=== PATIENT | male | born 1960 | race African-American/Black ===

== ENCOUNTER 2019-06-02 06:17 | Inpatient (IN) | payer OTHER ==
[2019-06-01 12:31] VITALS: BMI 28.8
[2019-06-02] MEDS ORDERED: ROCURONIUM BROMIDE 50 MG/5 ML SYRINGE ONE ×2 (07:02→09:40)
[2019-06-02] MEDS ORDERED: PROPOFOL 20 ML ONE ×2 (07:02→08:26)
[2019-06-02] MEDS ORDERED: SUCCINYLCHOLINE CHLORIDE 200 MG/10 ML SYRINGE ONE (07:02)
[2019-06-02] MEDS ORDERED: fentaNYL CITRATE 250 MCG/5 ML VIAL ONE (07:02)
[2019-06-02] MEDS ORDERED: MIDAZOLAM HCL 2 MG/2 ML SINGLE DOSE VIAL ONE (07:02)
[2019-06-02] MEDS ORDERED: DEXAMETHASONE SOD PHOSPHATE 4 MG/1 ML VIAL ONE (07:03)
[2019-06-02] MEDS ORDERED: LIDOCAINE HCL/PF 2% SDV 5ML VIAL ONE (07:03)
[2019-06-02] MEDS ORDERED: HEPARIN NA (PORCINE) 5,000 UNITS/ML 1ML VIAL SQ ONE ×2 (07:03→13:11)
[2019-06-02] MEDS ORDERED: BUPIVACAINE HCL/PF 0.25% (2.5MG/ML) 10 ML VIAL ONE ×2 (07:36→12:12)
[2019-06-02] MEDS ORDERED: ceFAZolin SODIUM 1 GM VIAL ONE (08:54)
[2019-06-02] MEDS ORDERED: ceFAZolin SODIUM 1 GM VIAL IVPB ONE (08:55)
[2019-06-02] MEDS ORDERED: ONDANSETRON 4 MG/2 ML VIAL IVPUSH PRN (09:49)
[2019-06-02] MEDS ORDERED: LACTATED RINGERS SOLUTION 1,000 ML IV SCH (10:00)
[2019-06-02] MEDS ORDERED: NEOSTIGMINE METHYLSULFATE 0.5 MG/ML - 10 ML MDV ONE (12:09)
[2019-06-02] MEDS ORDERED: GLYCOPYRROLATE 0.2 MG/1 ML VIAL ONE (12:09)
[2019-06-02] MEDS ORDERED: BUPIVACAINE HCL/PF 0.25% (2.5MG/ML) 10 ML VIAL IJ ONE ×2 (12:14)
[2019-06-02] MEDS ORDERED: KETOROLAC TROMETHAMINE 30 MG/1 ML VIAL ONE (12:25)
[2019-06-02] MEDS ORDERED: ACETAMINOPHEN 1000 MG/100 ML VIAL (NON FORMULARY) IVPB ONE (13:00)
[2019-06-02] MEDS ORDERED: diphenhydrAMINE HCL 50 MG CAPSULE PO PRN (13:11)
[2019-06-02] MEDS ORDERED: OXYBUTYNIN CHLORIDE 5 MG TABLET PO PRN (13:11)
[2019-06-02] MEDS ORDERED: ONDANSETRON 4 MG/2 ML VIAL IVPB PRN (13:11)
[2019-06-02] MEDS ORDERED: SODIUM CHLORIDE 1,000 ML IV SCH (13:15)
[2019-06-02] MEDS ORDERED: ACETAMINOPHEN INJECTION 100 ML IVPB ONE (13:19)
--- NOTE | 2019-06-02 14:31 | OP ---
Operative Note - Note: Operative Date: 06/02/19 Pre-Operative Diagnosis: prostate cancer Operation: robotic assisted total prosatectomy with b/l pelvic lymphnode dissection Post-Operative Diagnosis: Same as Pre-op Surgeon: Hank Clayton Maintainer Operator: Meri Schmitz Anesthesiologist/CREDIT CONTROL CLERK: Vickie Villatoro Anesthesia: General Specimens Removed: prostate, seminal vessicles, periprostatic fat, pelvic lymphnodes. Estimated Blood Loss (mls): 100 Fluid Volume Replaced (mls): 1,800 Operative Report Dictated: Yes
--- NOTE | 2019-06-02 14:39 | SURG ---
Surgery Integrative Medicine Physician Note Integrative Medicine Physician: Meri Schmitz PA-C Date of Service: 06/02/19 Diagnosis: prostate cancer Procedure: robotic assisted total prosatectomy with b/l pelvic lymphnode dissection I was present for the entirety of the operative procedure. For further detail, please refer to operative report. Visit type - Case Type Case Type: Scheduled - Emergency Emergency Visit: No - New patient This patient is new to me today: Yes Date on this admission: 06/02/19
[2019-06-02] MEDS ORDERED: HYDROmorphone HCl 2 MG/ML VIAL ONE (16:14)
[2019-06-02] MEDS ORDERED: HYDROmorphone HCL CARPU-JECT 2 MG/1 ML DISP.SYRIN IVPUSH ONE ×2 (16:20→17:05)
[2019-06-02] MEDS ORDERED: HYDROmorphone HCl 2 MG/ML VIAL IVPB PRN (17:22)
[2019-06-02] MEDS: ACETAMINOPHEN 1000 MG/100 ML VIAL (NON FORMULARY) IVPB SCH (19:12)
[2019-06-02] MEDS: oxyCODONE HCL 5 MG TABLET PO PRN (21:34)
[2019-06-02] MEDS: DOCUSATE SODIUM 100 MG CAPSULE (FP) PO SCH (22:00)
[2019-06-02] MEDS ORDERED: ZOLPIDEM TARTRATE 5 MG TABLET PO PRN (22:00)
[2019-06-02] MEDS: LATANOPROST 0.005% OPHTH SOLN 2.5ML BOTTLE OU SCH (22:45)
[2019-06-03] MEDS: KETOROLAC TROMETHAMINE 10 MG TABLET PO SCH ×5 (00:23→18:11)
[2019-06-03] MEDS: ACETAMINOPHEN 1000 MG/100 ML VIAL (NON FORMULARY) IVPB SCH ×2 (02:45→08:46)
[2019-06-03] MEDS: oxyCODONE HCL 5 MG TABLET PO PRN (04:49)
--- NOTE | 2019-06-03 07:08 | OP ---
DATE OF OPERATION: 06/02/2019 PREOPERATIVE DIAGNOSIS: Prostate cancer. POSTOPERATIVE DIAGNOSIS: Prostate cancer. PROCEDURE: Robotic-assisted laparoscopic radical prostatectomy and bilateral pelvic lymph node dissection. The patient was brought to the operating room. A timeout was called. All pressure points were padded. He was prepped and draped in the usual fashion for robotic radical prostatectomy. A Elliott catheter was placed in the bladder. Initial pneumoperitoneum was obtained using a Veress needle. Subsequently an 8-mm port was placed and the robotic camera was used and the abdomen was explored. No bowel injuries were identified. Three additional 8-mm ports and one 12-mm kindergarten teacher assistant port were placed under vision. The robot was brought to the patient's bedside and docked. We identified a few intraabdominal adhesions, which were taken down sharply. The bladder was dropped from the anterior attachment to the abdominal wall. The prostate was then defatted and the fat was sent for pathological examination. The endopelvic fascia was opened on both sides. Superficial veins were cauterized and a DVC stitch of 0 PDS was placed. The anterior bladder neck was then incised and the dissection proceeded towards the posterior bladder neck up to the vas deferens and seminal vesicles. The rectoprostatic fascia was incised and the dissection was carried distally towards the apex. At that point bilateral nerve-sparing procedure was performed and dissection was pursued laterally up to the apex. On the right, an intrafascial nerve-sparing procedure was performed. On the left, an intrafascial nerve-sparing procedure was performed. The prostatic vascular pedicles were then controlled bilaterally using Weck clips. The DVC was then divided and the urethra was transected using cold scissors. Following complete urethral transection, the prostate was then mobilized and freed from its posterior attachment and placed in the right upper quadrant. The prostatic basin was then irrigated with saline. The bedside kindergarten teacher assistant placed a finger in the rectum and no rectal injury was observed with no visible blood noted on the surgical consultant's glove. Bilateral pelvic lymph node dissections were performed in the usual fashion between the external iliac and the obturator nerves bilaterally. The prostate and lymph nodes were then placed together in an EndoCatch bag. At this point hemostasis was assessed and maintained in the prostatic fossa. The urethrovesical anastomosis was then performed using 2-0 Monocryl sutures on a UR-6 needle in a running anastomotic technique. The anastomosis was tested with 60 mL of saline and was watertight. A Bartolo-Haro drain was not placed. The 12-mm kindergarten teacher assistant port was closed using the Quique-Narendra device with 0 Vicryl. The specimen was extracted after enlarging the umbilical incision. The fascia was then closed using running 0 Vicryl. The skin was closed using 4-0 Monocryl and covered with Dermabond. The patient was extubated in the operating room and taken to the recovery room in good condition. Estimated blood loss: 100 mL. There were no accidental lacerations or complications from the procedure. MD APOLINAR GOODRICH/[id number]
[2019-06-03 07:20] LABS: HEMATOCRIT 37.6 % (35.4-49); HEMOGLOBIN 12.9 GM/dL (11.7-16.9); MCH 32.4 pg (25.7-33.7); MCHC 34.3 g/dl (32.0-35.9); MEAN CELL VOLUME 94.5 fl (80-96); MEAN PLT VOLUME 8.8 fl (7.5-11.1); PLATELET COUNT 167 K/MM3 (134-434); RBC 3.97 M/mm3 (4.00-5.60); RDW 14.1 % (11.9-15.9); WHITE BLOOD COUNT 10.4 K/mm3 (4.0-10.0)
[2019-06-03 07:34] LABS: BLOOD UREA NITROGEN 20.7 mg/dL (7-18); CALCIUM 8.6 mg/dL (8.5-10.1); CREATININE 1.1 mg/dL (0.55-1.3)
--- NOTE | 2019-06-03 08:51 | PN ---
Progress Note (short form) - Note Progress Note: Surgery POD #1 robotic assisted prostatectomy patient seen and examined at bedside c/o diffuse abdominal pain and groin pain. He has been tolerated clears but has not been OOB or passed gas yet. He denies any CP, SOB, N/V fever or chills.
--- NOTE | 2019-06-03 09:07 | DS ---
Physical Exam: SUBJECTIVE: POD #1 robotic assisted prostatectomy patient seen and examined at bedside c/o diffuse abdominal pain and groin pain. He has been tolerated clears but has not been OOB or passed gas yet. He denies any CP, SOB, N/V fever or chills. his jenkins put out @ 650cc overnight. OBJECTIVE: Vital Signs Temperature 98.6 F 06/03/19 05:43 Pulse Rate 85 06/03/19 05:43 Respiratory Rate 18 06/03/19 05:43 Blood Pressure 141/65 06/03/19 05:43 O2 Sat by Pulse Oximetry (%) 98 06/02/19 21:00 PHYSICAL EXAM GENERAL: The patient is awake, alert, and fully oriented, in no acute distress. HEAD: Normal with no signs of trauma. EYES: sclera anicteric, conjunctiva clear. LUNGS: no auditory wheezes, no accessory muscle use. ABDOMEN: Soft, mildly distended, with diffuse TTP throughout, Incisions c/d/i with surrounding tissue intact and no tracking erythema or d/c. Jenkins secure in place with pink tinged urine, Scrotum with no edema EXTREMITIES: 2+ pulses, warm, well-perfused, no edema. NEUROLOGICAL: Cranial nerves II through XII grossly intact. Normal speech, gait not observed. PSYCH: Normal mood, normal affect. SKIN: Warm, dry, normal turgor, no rashes or lesions noted. LABS CBC,CMP WBC 10.4 K/mm3 (4.0-10.0) H 06/03/19 06:35 RBC 3.97 M/mm3 (4.00-5.60) L 06/03/19 06:35 Hgb 12.9 GM/dL (11.7-16.9) 06/03/19 06:35 Hct 37.6 % (35.4-49) 06/03/19 06:35 MCV 94.5 fl (80-96) 06/03/19 06:35 MCH 32.4 pg (25.7-33.7) 06/03/19 06:35 MCHC 34.3 g/dl (32.0-35.9) 06/03/19 06:35 RDW 14.1 % (11.9-15.9) 06/03/19 06:35 Plt Count 167 K/MM3 (134-434) 06/03/19 06:35 MPV 8.8 fl (7.5-11.1) 06/03/19 06:35 Sodium 137 mmol/L (136-145) 06/03/19 06:35 Potassium 4.0 mmol/L (3.5-5.1) 06/03/19 06:35 Chloride 100 mmol/L (98-107) 06/03/19 06:35 Carbon Dioxide 30 mmol/L (21-32) 06/03/19 06:35 Anion Gap 6 MMOL/L (8-16) L 06/03/19 06:35 BUN 20.7 mg/dL (7-18) H 06/03/19 06:35 Creatinine 1.1 mg/dL (0.55-1.3) 06/03/19 06:35 Est GFR (CKD-EPI)AfAm 84.71 06/03/19 06:35 Est GFR (CKD-EPI)NonAf 73.09 06/03/19 06:35 Random Glucose 116 mg/dL (74-106) H 06/03/19 06:35 Calcium 8.6 mg/dL (8.5-10.1) 06/03/19 06:35 HOSPITAL COURSE: Date of Admission:06/02/19 The patient was admitted to the Med-Surg Unit after an elective robotic assisted prostatectomy. Now, POD #1 prostatectomy with pelvic lymph node dissection Non-narcotic pain management control was achieved with an oral and IV approach. POD #1, the patient ambulated in the hallway without assistance and no services were recommended upon discharge. Martine-operative IV ABX were administered. DVT prophylaxis was achieved with SCDs and early ambulation. Non-Narcotic scripts were written for d/c home. The discharge instructions and an oral pain management plan were reviewed with the patient. All questions answered. Above plan discussed with and agreed. Date of Discharge: 06/03/19 Minutes to complete discharge: 25 Visit type - Case Type Case Type: Scheduled - Emergency Emergency Visit: No - New patient This patient is new to me today: Yes Date on this admission: 06/03/19
--- NOTE | 2019-06-03 09:10 | PN ---
HC Provider Note Provider Note: Anesthesia Post Op Pt in bed awake alert NAD Pt reports diffuse abd pain/discomfort Pt reports tolerating po's well no n/v Denies puritis, Ambulating todau, jenkins remains in situ VSS no apparent anesthesia complications Holger Torres.
[2019-06-03] MEDS ORDERED: PATIENT'S OWN MEDICATION (NON-FORMULARY) (Olmesartan/Amlodipin/Hcthiazid [Tribenzor 40-10- PO SCH (10:00)
[2019-06-03] MEDS: DOCUSATE SODIUM 100 MG CAPSULE (FP) PO SCH ×2 (11:00→22:14)
[2019-06-03] MEDS: ESCITALOPRAM OXALATE 10 MG TABLET (FP) PO SCH (11:00)
[2019-06-03] MEDS: hydrALAZINE HCL 50 MG TABLET (FP) PO SCH (11:16)
[2019-06-03] MEDS: HYDROCHLOROTHIAZIDE 25 MG TABLET (FP) PO SCH (11:18)
[2019-06-03] MEDS: VALSARTAN 160 MG TABLET (UD) PO SCH (11:18)
[2019-06-03] MEDS: FUROSEMIDE 20 MG TABLET (FP) PO SCH (11:18)
[2019-06-03] MEDS: amLODIPine BESYLATE 10 MG TABLET (FP) PO SCH (11:19)
[2019-06-03] MEDS: ACETAMINOPHEN 500 MG TABLET (FP) PO SCH ×2 (14:14→20:47)
--- NOTE | 2019-06-03 15:57 | PN ---
Progress Note (short form) - Note Progress Note: Patient seen and examined at bedside. Patient has refused to ambulate 2/2 pain at 2 left port sites, states he feels a tearing pain at the sites when he moves. He is tolerating a regular diet and has passed gas. Nursing reports no issues throughout the day. He has been resting comfortably and sleeping off and on throughout the afternoon. Vital Signs Temp 98.4 F 06/03/19 09:00 Pulse 86 06/03/19 09:00 Resp 18 06/03/19 09:00 BP 107/56 L 06/03/19 09:00 Pulse Ox 95 06/03/19 09:00 Intake & Output 06/02/19 06/03/19 06/03/19 23:59 11:59 23:59 Intake Total 1000 1420 230 Output Total 1400 350 400 Balance -400 1070 -170 Intake: IV 500 900 Normal Saline - 1,000 ml 900 @ 75 mls/hr IV ASDIR PRESLEY Rx#:[id number] IVPB 200 Oral 500 320 230 Output: Urine 1300 350 400 Elliott 300 350 400 Void 200 Estimated Blood Loss 100 Other: Voiding Method Indwelling Catheter Indwelling Catheter Bowel Movement No No PE: A&0x3, NAD unlbored resp on RA ABD: exam unchaged from this mornings exam. urine appears less pink and more yellow this afternoon. Elliott catheter secure with no evidence of leakage at catheter. Problem List - Problems (1) S/P prostatectomy Assessment/Plan: POD #1 patient has not ambulated. I again stressed the importance of ambulation and getting OOB. He has agreed to get up with PT before dinner in a few hours. Plan for d/c home tomorrow. Continue current Plan of as outlined in my AM note. Evaluation and plan discussed with Dr Clayton Code(s): Z90.79 - ACQUIRED ABSENCE OF OTHER GENITAL ORGAN(S)
[2019-06-03] MEDS ORDERED: PT OWN MED DRAWER 7, Y5N ONE ×2 (18:32→21:50)
[2019-06-03] MEDS ORDERED: ATORVASTATIN CA 10 MG TABLET (FP) PO SCH (22:00)
[2019-06-03] MEDS: LATANOPROST 0.005% OPHTH SOLN 2.5ML BOTTLE OU SCH (22:14)
[2019-06-04] MEDS: KETOROLAC TROMETHAMINE 10 MG TABLET PO SCH ×3 (01:09→13:20)
[2019-06-04] MEDS: ACETAMINOPHEN 500 MG TABLET (FP) PO SCH ×3 (01:11→13:49)
--- NOTE | 2019-06-04 08:15 | PN ---
Progress Note (short form) - Note Progress Note: POD #2 robotic assisted prostatectomy, patient seen and examined at bedside. Patient did get up to chair yesterday 2/2 pain over the left port sites but he has ambulated for the first time this morning. He states the pain is improving and more focal over the superior left port site with movement. He continues to tolerate a regular diet and is passing gas. Nursing reports no issues overnight. He has been resting comfortably and denies any CP, SOB, N/V fever or chills. Vital Signs Temp 98.2 F 06/04/19 05:00 Pulse 72 06/04/19 05:00 Resp 18 06/04/19 05:00 BP 152/99 06/04/19 05:00 Pulse Ox 97 06/03/19 21:00 Intake & Output 06/03/19 06/03/19 06/04/19 11:59 23:59 11:59 Intake Total 1420 1550 1250 Output Total 979 185 8802 Balance 1070 650 249 Intake: IV 900 600 900 Normal Saline - 1,000 ml 900 600 900 @ 75 mls/hr IV ASDIR PRESLEY Rx#:[id number] IVPB 200 100 Oral 320 850 350 Output: Urine 195 [id number] [id number] Elliott [phone] Other: Voiding Method Indwelling Catheter Indwelling Catheter Bowel Movement No CBC, BMP CBC, BMP 06/04/19 08:00 06/04/19 08:00 PE: A&0x3, NAD unlbored resp on RA ABD: soft, ND, with focal TTP around superior port site on left side. Surrounding tissue intact with no erythema, or d/c. Elliott securely in place, urine clear with appropriate output and no evidence of leakage at catheter. B/L LE compartments soft, supple and non tender with +2 DP pulses Problem List - Problems (1) S/P prostatectomy Assessment/Plan: POD #2 patient doing well with pain controlled and improving. Plan for d/c home today. -OOB with assist -regular diet -encourage daily IS - d/c home today Evaluation and plan discussed with Dr Clayton Code(s): Z90.79 - ACQUIRED ABSENCE OF OTHER GENITAL ORGAN(S)
[2019-06-04 08:40] LABS: BASO % 0.3 % (0-2.0); EOS % 1.2 % (0-4.5); HEMATOCRIT 38.6 % (35.4-49); HEMOGLOBIN 13.4 GM/dL (11.7-16.9); LYMPH % 24.4 % (8-40); MCH 32.8 pg (25.7-33.7); MCHC 34.6 g/dl (32.0-35.9); MEAN CELL VOLUME 94.7 fl (80-96); MEAN PLT VOLUME 8.9 fl (7.5-11.1); MONO % 6.9 % (3.8-10.2); NEUT % 67.2 % (42.8-82.8); PLATELET COUNT 167 K/MM3 (134-434); RBC 4.08 M/mm3 (4.00-5.60); RDW 14.3 % (11.9-15.9); WHITE BLOOD COUNT 8.2 K/mm3 (4.0-10.0)
[2019-06-04 09:01] LABS: ALBUMIN 3.3 g/dl (3.4-5.0); BILIRUBIN,TOTAL 1.1 mg/dL (0.2-1); BLOOD UREA NITROGEN 15.8 mg/dL (7-18); CALCIUM 8.8 mg/dL (8.5-10.1); POTASSIUM 3.5 mmol/L (3.5-5.1); TOT PROT 6.4 g/dl (6.4-8.2)
[2019-06-04] MEDS: FUROSEMIDE 20 MG TABLET (FP) PO SCH (09:52)
[2019-06-04] MEDS: DOCUSATE SODIUM 100 MG CAPSULE (FP) PO SCH (09:52)
[2019-06-04] MEDS: VALSARTAN 160 MG TABLET (UD) PO SCH (09:52)
[2019-06-04] MEDS: ESCITALOPRAM OXALATE 10 MG TABLET (FP) PO SCH (09:52)
[2019-06-04] MEDS: amLODIPine BESYLATE 10 MG TABLET (FP) PO SCH (09:52)
[2019-06-04] MEDS: HYDROCHLOROTHIAZIDE 25 MG TABLET (FP) PO SCH (09:52)
[2019-06-04] MEDS: hydrALAZINE HCL 50 MG TABLET (FP) PO SCH (09:52)
[2019-06-04 15:55] VITALS: BP 138/78; PULSE 77; TEMP 98.7
--- NOTE | 2019-06-05 17:29 | PATH ---
Surgical Pathology Report Patient Name: PEYTON HANKINS [facility]. Rec. #: [id number] /Age/Gender: 1960 (Age: 58) / M Account: [id number] Location: [address] [place] [address]/[facility] Taken: 06/02/2019 Received: 06/02/2019 Reported: 06/11/2019 Physicians: Hank Clayton MD Specimen(s) Received A: URETHRAL MARGIN B: PERIPROSTATIC FAT C: PELVIC LYMPH NODE A D: PELVIC LYMPH NODE B E: PROSTATE AND SEMINAL VESICLE Clinical History Prostate cancer Intraoperative Consult Diagnosis URETHRAL MARGIN FOR FROZEN: BENIGN FIBROCONNECTIVE TISSUE. NEGATIVE FOR MALIGNANCY. Dr. Canela Final Diagnosis A. URETHRAL MARGIN FOR FROZEN (FS): BENIGN FIBROCONNECTIVE TISSUE, NEGATIVE FOR CARCINOMA. B. PERIPROSTATIC FAT, EXCISION: BENIGN ADIPOSE TISSUE, NEGATIVE FOR CARCINOMA. C. PELVIC LYMPH NODE A, EXCISION: ONE LYMPH NODE, NEGATIVE FOR METASTATIC CARCINOMA (0/1). D. PELVIC LYMPH NODE B, EXCISION: ONE LYMPH NODE, NEGATIVE FOR METASTATIC CARCINOMA (0/1). E. PROSTATE AND SEMINAL VESICLE, RADICAL PROSTATECTOMY: PROSTATIC ADENOCARCINOMA, ACINAR TYPE, JOSE SCORE 3+4 =7, GRADE GROUP 2. TUMOR VOLUME: APPROXIMATELY 10% OF PROSTATE. TUMOR PREDOMINANTLY PRESENT AT THE LEFT SIDE, FOCALLY INVOLVING RIGHT SIDE OF THE PROSTATE. SEMINAL VESICLE INVASION NOT IDENTIFIED. LYMPHOVASCULAR INVASION NOT IDENTIFIED. PERINEURAL INVASION IDENTIFIED. NO EXTRAPROSTATIC EXTENSION PRESENT. SURGICAL MARGINS ARE NEGATIVE FOR CARCINOMA. PATHOLOGIC STAGE (pTNM): pT2 pN0 SEE SURGICAL PATHOLOGY CANCER CASE SUMMARY BELOW. Comment: Immunohistochemistry stain p63 (block E18 and E26) performed and interpreted at [facility] shows loss of basal layer in the areas of carcinoma. Positive and negative controls (internal if applicable) show appropriate results. Comments SURGICAL PATHOLOGY CANCER CASE SUMMARY Procedure _x_ Radical prostatectomy +Prostate Size + Weight: (grams): 63 g + Size (centimeters): 5.5 x 5.3 x 3.1cm Histologic Type _x_ Acinar adenocarcinoma Histologic Grade Grade Group and Jose Score _x_ Grade group 2 ([place]kill Score 3+4=7) Percentage of Pattern 4 in C[place]kill Score 7 (3+4, 4+3) Cancer: 25 % + Intraductal Carcinoma (IDC) + _x_ Not identified + Tumor Quantitation + Estimated percentage of prostate involved by tumor: 10% + Tumor size (dominant nodule, if present): + Greatest dimension (millimeters): 20 mm + Location of dominant nodule: Left Extraprostatic Extension (EPE) _x_ Not identified Urinary Bladder Neck Invasion _x_ Not identified Seminal Vesicle Invasion _x_ Not identified + Lymphovascular Invasion + _x_ Not identified + Perineural Invasion + _x_ Present Margins _x_ Uninvolved by invasive carcinoma Treatment Effect _x_ No known presurgical therapy Regional Lymph Nodes Number of Lymph Nodes Involved: 0 Number of Lymph Nodes Examined: 2 Pathologic Stage Classification (pTNM, AJCC 8th Edition) Primary Tumor (pT) _x_ pT2: Organ confined Regional Lymph Nodes (pN) _x_ pN0: No positive regional nodes + Additional Pathologic Findings + _x_ High-grade prostatic intraepithelial neoplasia (PIN) + _x_ Nodular prostatic hyperplasia Electronically Signed Savannah Canela M.D. Gross Description A. Received fresh, labeled "urethral margin" is a richmond, irregular portion of soft tissue measuring 0.5 x 0.3 x 0.2 cm. The specimen is submitted for frozen. The remaining of the tissue submitted in one cassette for histology. B. Received in formalin, labeled "periprostatic fat" are 2 portions of adipose tissue measuring 3.0 x 2.0 x 0.2 cm and 2.5 x 2.5 x 0.2 cm, respectively. The specimen is entirely submitted 2 cassettes. C. Received in formalin, labeled "pelvic lymph node A" is a nodular lesion probably a lymph node measuring 5 x 1 x 1 cm. The nodule is serially sectioned and entirely submitted in 3 cassettes. The rest fatty tissue is entirely submitted in one cassette. 1-3: Nodular lesion; 4: Fatty tissue. D. Received in formalin, labeled "pelvic lymph node B" is a nodular lesion with attached fat measuring 9 x 2.5 x 2.5 cm. A nodular lesion probably represent a lymph node measures 7 x 1 x 1 cm is . The nodular lesion is serially sectioned and entirely submitted 4 cassettes. E. Received in formalin labeled with "prostate and seminal vesicles", is a 63g radical prostatectomy specimen with attached seminal vesicles and vas deferentia. The prostate measures 5.5 cm from left to right, 5.3 cm from superior to inferior, and 3.1 cm from anterior to posterior. The left vas deferens measures 4 cm in length and 0.4 cm in diameter. Right vas deferens measures 4.3 cm in length and 0.4 cm in diameter. The left seminal vesicle measures 4.0 x 2.3 x 0.4 cm, and the right seminal vesicle measures 3.5 x 2.5 x 0.4 cm. The outer capsule is richmond-alford and predominantly smooth. The anterior prostate is inked blue, the posterior prostate is inked black. Serial sections reveal a nodular lesion with yellow discoloration located at the left side of the prostate, this nodular lesion measures 2cm in greatest dimension. Operators Teacher sections are submitted in 26 cassettes. 1: Left vas deferens margin; 2: right vas deferens margin; 3: left seminal vesicle base; 4: right seminal vesicle base; 5-6: left apical margin (inked blue), perpendicular; 7: right apical margin (inked blue), perpendicular; 8: left bladder neck margin (inked black), perpendicular; 9-10: right bladder neck margin (inked black), perpendicular; 11-19: left prostate sequentially submitted from base to apex; 20-27: right prostate sequentially submitted from base to apex. PAM/06/03/2019 purnima06/03/2019
== END 2019-06-04 17:24 | disposition home or self-care (01) | DRG 484 ==
LOC: JSAMEDAYSX 06:17 → J6S 18:05
PROVIDERS: ADMIT Urology; ATTEND Urology
PROC: 8E0W4CZ Robotic Assisted Procedure of Trunk Region, Percutaneous Endoscopic Approach (ICD-10-PCS; 2019-06-02)
PROC: 07BC4ZX Excision of Pelvis Lymphatic, Percutaneous Endoscopic Approach, Diagnostic (ICD-10-PCS; 2019-06-02)
PROC: 0VT04ZZ Resection of Prostate, Percutaneous Endoscopic Approach (ICD-10-PCS; principal; 2019-06-02 08:00)
DX: C61 Malignant neoplasm of prostate (principal)
CPT/HCPCS: 36415; 80048; 80053; 85025; 85027; 86850; 86900; 86901; 88305-TC; 88309-TC; 88331-TC; 94010; 94760; 97116-GP; 97161-GP; J0131; J7030